=== PATIENT | female | born 1990 | race Caucasian/White ===

== ENCOUNTER 2018-05-28 13:54 | Emergency (ER) | payer OTHER ==
[2018-05-28] MEDS ORDERED: SODIUM CHLORIDE 0.9% 1,000 ML IV ONE (14:19)
--- NOTE | 2018-05-28 14:29 | ED Physician Documentation ---
History of Present Illness - Stated complaint Stated Complaint: DEHYDRATED - Chief complaint Chief Complaint: General - History obtained from History obtained from: Patient - History of Present Illness Timing: Today Pain level max: 0 Pain level now: 0 - Additonal information Additional information: 28 year old female, changed her diet to intermittent fasting 16:8 2 weeks ago. Thinks her daily caloric intake is around 1600 now. States body aches since yesterday and nausea today.Feels lightheaded with standing. Feels dehydrated per pt. No fever. no diarrhe. no possibility of . Review of Systems Ten Systems: 10 systems reviewed and negative Constitutional: denies: Fever, Chills Ears: denies: Ear pain Nose: denies: Rhinorrhea / runny nose, Congestion Throat: denies: Sore throat Cardiac: denies: Chest pain / pressure Respiratory: denies: Cough GI: reports: Nausea. denies: Abdominal Pain, Vomiting, Diarrhea : denies: Dysuria Skin: denies: Rash Musculoskeletal: denies: Neck pain, Back pain Neurologic: denies: Focal weakness, Numbness, Headache PD PAST MEDICAL HISTORY - Past Medical History Past Medical History: No - Past Surgical History Past Surgical History: No - Allergies Allergies/Adverse Reactions: Allergies Allergy/AdvReac Type Severity Reaction Status Date / Time No Known Drug Allergies Allergy Verified 05/28/18 14:14 - Living Situation Living Arrangement: reports: At home - Social History Does the pt smoke?: No Does the pt have substance abuse?: No - Family History Family history: reports: Non contributory PD ED PE NORMAL - Vitals Vital signs reviewed: Yes - General General: Alert and oriented X 3, No acute distress - HEENT HEENT: Other (dry lips and tongue) - Neck Neck: Supple, no meningeal sign - Cardiac Cardiac: RRR - Respiratory Respiratory: No respiratory distress, Clear bilaterally - Abdomen Abdomen: Soft, Non tender, Non distended - Back Back: No CVA TTP, No spinal TTP - Derm Derm: Warm and dry, No rash - Extremities Extremities: No edema - Neuro Neuro: Alert and oriented X 3, No motor deficit, No sensory deficit Results - Vitals Vitals: Vital Signs - 24 hr 05/28/18 05/28/18 05/28/18 14:05 14:53 14:55 Temperature 36.4 C L Heart Rate 80 77 80 Respiratory 18 16 16 Rate Blood Pressure 141/65 H 128/73 120/56 L O2 Saturation 100 99 97 05/28/18 05/28/18 15:00 15:15 Temperature Heart Rate 80 76 Respiratory 16 16 Rate Blood Pressure 120/64 129/60 O2 Saturation Oxygen O2 Source Room air - Labs Labs: Laboratory Tests 05/28/18 05/28/18 05/28/18 14:26 14:26 14:26 WBC 7.5 RBC 4.40 Hgb 13.3 Hct 38.5 MCV 87.4 MCH 30.2 MCHC 34.6 RDW 13.7 Plt Count 191 MPV 7.4 L Neut # (Auto) 6.7 H Lymph # (Auto) 0.4 L Barnes # (Auto) 0.3 Eos # (Auto) 0.0 Baso # (Auto) 0.0 Absolute Nucleated RBC 0.00 Nucleated RBC % 0.0 Sodium 135 Potassium 3.8 Chloride 99 L Carbon Dioxide 28 Anion Gap 8.0 BUN 10 Creatinine 0.7 Estimated GFR (MDRD) 100 Glucose 93 Calcium 9.0 Phosphorus 3.0 Magnesium 1.9 Total Bilirubin 0.5 AST 21 ALT 16 Alkaline Phosphatase 84 Total Creatine Kinase 88 Total Protein 7.6 Albumin 4.1 Globulin 3.5 Albumin/Globulin Ratio 1.2 Urine Color Urine Clarity Urine pH Ur Specific Emily Urine Protein Urine Glucose (UA) Urine Ketones Urine Occult Blood Urine Nitrite Urine Bilirubin Urine Urobilinogen Ur Leukocyte Esterase Ur Microscopic Review Urine Culture Comments Urine HCG, Qual 05/28/18 16:18 WBC RBC Hgb Hct MCV MCH MCHC RDW Plt Count MPV Neut # (Auto) Lymph # (Auto) Barnes # (Auto) Eos # (Auto) Baso # (Auto) Absolute Nucleated RBC Nucleated RBC % Sodium Potassium Chloride Carbon Dioxide Anion Gap BUN Creatinine Estimated GFR (MDRD) Glucose Calcium Phosphorus Magnesium Total Bilirubin AST ALT Alkaline Phosphatase Total Creatine Kinase Total Protein Albumin Globulin Albumin/Globulin Ratio Urine Color YELLOW Urine Clarity CLEAR Urine pH 6.0 Ur Specific Emily 1.015 Urine Protein NEGATIVE Urine Glucose (UA) NEGATIVE Urine Ketones NEGATIVE Urine Occult Blood NEGATIVE Urine Nitrite NEGATIVE Urine Bilirubin NEGATIVE Urine Urobilinogen 0.2 (NORMAL) Ur Leukocyte Esterase NEGATIVE Ur Microscopic Review NOT INDICATED Urine Culture Comments NOT INDICATED Urine HCG, Qual NEGATIVE PD MEDICAL DECISION MAKING - ED course Complexity details: reviewed results, re-evaluated patient, considered differential, d/w patient ED course: 28-year-old female whose symptoms resolved after IV fluids in the emergency department. Tolerating p.o. without difficulty. Feels much better. Will encourage p.o. hydration at home. No acute laboratory abnormalities. Patient is well-appearing, nontoxic. Afebrile. Does not appear to have any significant laboratory abnormalities from her recent dietary changes. Patient counseled regarding signs and symptoms for which I believe and urgent re-evaluation would be necessary. Patient with good understanding of and agreement to plan and is comfortable going home at this time This document was made in part using voice recognition software. While efforts are made to proofread this document, sound alike and grammatical errors may occur. Departure - Departure Disposition: 01 Home, Self Care Clinical Impression: Dehydration Condition: Good Instructions: ED Dehydration Follow-Up: Provider,Other [Primary Care Provider] - As Needed Comments: Return if you worsen. Drink plenty of fluids at home. Your tests are normal today. Discharge Date/Time: 05/28/18 17:32
[2018-05-28 14:37] LABS: BASOPHILS % (AUTO) 0.1 %; EOSINOPHILS % (AUTO) 0.3 %; HGB - HEMOGLOBIN 13.3 g/dL (12.0-16.0); LYMPHOCYTES # (AUTO) 0.4 10^3/uL (1.5-3.5); LYMPHOCYTES % (AUTO) 5.8 %; MEAN CORPUSCULAR HEMOGLOBIN 30.2 pg (27.0-31.0); MEAN CORPUSCULAR HGB CONC 34.6 g/dL (32.0-36.0); MEAN CORPUSCULAR VOLUME 87.4 fL (81.0-99.0); MEAN PLATELET VOLUME 7.4 fL (7.9-10.8); MONOCYTES # (AUTO) 0.3 10^3/uL (0.0-1.0); MONOCYTES % (AUTO) 4.3 %; NEUTROPHILS # (AUTO) 6.7 10^3/uL (1.5-6.6); NEUTROPHILS % (AUTO) 89.5 %; PLT - PLATELET COUNT 191 10^3/uL (130-450); RED CELL DISTRIBUTION WIDTH 13.7 % (12.0-15.0); WHITE BLOOD COUNT 7.5 x10^3/uL (4.8-10.8)
[2018-05-28 14:50] LABS: ALBUMIN 4.1 g/dL (3.2-5.5); ALBUMIN/GLOBULIN RATIO 1.2 (1.0-2.2); BILIRUBIN,TOTAL 0.5 mg/dL (0.2-1.0); CREATININE 0.7 mg/dL (0.4-1.0); TOTAL PROTEIN 7.6 g/dL (6.7-8.2)
[2018-05-28 14:56] LABS: MAGNESIUM 1.9 mg/dL (1.7-2.8)
[2018-05-28 15:35] VITALS: BP 129/60
[2018-05-28 16:39] LABS: BILIRUBIN,URINE NEGATIVE (NEGATIVE); GLUCOSE, URINE (UA) NEGATIVE (NEGATIVE); KETONES,URINE (UA) NEGATIVE (NEGATIVE); LEUKOCYTE ESTERASE, URINE NEGATIVE (NEGATIVE); NITRITE,URINE NEGATIVE (NEGATIVE); OCCULT BLOOD,URINE NEGATIVE (NEGATIVE); PROTEIN,URINE NEGATIVE (NEGATIVE); UROBILINOGEN,URINE 0.2 (NORMAL) E.U./dL (NORMAL)
[2018-05-28 16:48] LABS: CLARITY,URINE CLEAR (CLEAR); HCG UR QUAL NEGATIVE
== END 2018-05-28 17:32 | disposition home or self-care (01) ==
LOC: ED 13:54
DX: E86.0 Dehydration (principal)
CPT/HCPCS: 36415; 80053; 81001; 81003; 81025; 82550; 83735; 84100; 85025; 87086; 96360; 99283

== ENCOUNTER 2018-12-30 10:28 | Outpatient (CLI) | payer OTHER | END 2018-12-30 10:29 | disposition home or self-care (01) | LOC: LAB 10:28 | PROVIDERS: ATTEND Nurse Practitioner Obstetrics & Gynecology | DX: Z36.8A Encounter for antenatal screening for other genetic defects (principal) | CPT/HCPCS: 36415; 81511; 81599 ==

== ENCOUNTER 2019-01-15 08:45 | Outpatient (CLI) | payer OTHER ==
--- NOTE | 2019-01-15 17:11 | Ultrasound Report ---
Reason: ENCOUNTER FOR OTHER SPECIFIED SCREENING Procedure Date: 01/15/2019 Accession Number: [id number] / [id number] Procedure: US - OB Detailed Eval CPT Code: FULL RESULT: EXAM: COMPLETE OBSTETRICAL ULTRASOUND EXAM DATE: 01/15/2019 11:18 AM. CLINICAL HISTORY: anatomic survey. LMP 08/15/2018 COMPARISON: None. TECHNIQUE: Real-time sonographic evaluation of the fetus performed by the order entry representative. Multiple sales representative business courses static images were saved for review. DATING: EGA 21 weeks 6 days with KRISTY 05/22/2019 based on LMP. EGA 19 weeks 2 days with KRISTY 06/09/2019 based on physician report. EGA 18 weeks 5 days with KRISTY 06/13/2019 based on the current ultrasound. GENERAL EVALUATION [place] . Cardiac activity: 149 bpm. movement: Present Presentation: Breech Placenta: Posterior position. No evidence for previa. Umbilical cord: 3 vessel cord. Central placental cord origin. Amniotic fluid: Subjectively normal. MVP 2.8 cm. BIOMETRY Bi-Parietal Diameter (BPD): 4 cm, 18 weeks 0 days Head Circumference (HC): 15.7 cm, 18 weeks 4 days Abdominal Circumference (AC): 14 cm, 19 weeks 3 days Femur Length (FL): 2.8 cm, 18 weeks 4 days Estimated Weight: 264 g, 25th percentile. ANATOMY The intracranial structures, profile, face/nose/lips, spine, 4 chamber heart and outflow tracts, stomach, abdominal wall and cord insertion, diaphragm, kidneys, bladder, and extremities were visualized and demonstrate no abnormality. MATERNAL STRUCTURES Uterus: Unremarkable. Cervix: Long and closed. Transabdominal length 5.5 cm. Right ovary/adnexa: Unremarkable. Left ovary/adnexa: Unremarkable. Free fluid: None. IMPRESSION: 1. Mcgowan intrauterine with gestational age 19 weeks 2 days based on physician stated. 2. Estimated weight is within expected limits for assigned dating. 3. Normal anatomic survey. No anatomic abnormalities are detected at this time. RADIA
== END 2019-01-15 08:46 | disposition home or self-care (01) ==
LOC: DI 08:45
PROVIDERS: ATTEND Nurse Practitioner Obstetrics & Gynecology
DX: Z36.89 Encounter for other specified antenatal screening (principal)
CPT/HCPCS: 76811

== ENCOUNTER 2019-01-30 11:20 | Outpatient (CLI) | payer OTHER ==
[2019-01-30 11:30] LABS: HGB - HEMOGLOBIN 12.3 g/dL (12.0-16.0); MEAN CORPUSCULAR HGB CONC 33.6 g/dL (32.0-36.0); MEAN CORPUSCULAR VOLUME 89.3 fL (81.0-99.0); MEAN PLATELET VOLUME 9.4 fL (7.9-10.8); RED BLOOD COUNT 4.1 10^6/uL (4.20-5.40); RED CELL DISTRIBUTION WIDTH 12.9 % (12.0-15.0); WHITE BLOOD COUNT 11.2 x10^3/uL (4.8-10.8)
[2019-01-30 11:49] LABS: % IRON SATURATION 12 % (20-50); IRON 44 ug/dL (28-170); TOTAL IRON BINDING CAPACITY 378 ug/dL (250-450); TRANSFERRIN 270 mg/dL (192-382)
[2019-01-30 12:06] LABS: FERRITIN 83.4 ng/mL (11.0-306.8)
== END 2019-01-30 11:21 | disposition home or self-care (01) ==
LOC: LAB 11:20
PROVIDERS: ATTEND Obstetrics & Gynecology
DX: Z34.90 Encounter for supervision of normal pregnancy, unspecified, unspecified trimester (principal); R53.83 Other fatigue
CPT/HCPCS: 36415; 82728; 83540; 84443; 84466; 85027

== ENCOUNTER 2019-03-24 13:58 | Outpatient (CLI) | payer OTHER ==
[2019-03-24 15:30] LABS: HGB - HEMOGLOBIN 12.4 g/dL (12.0-16.0); MEAN CORPUSCULAR HEMOGLOBIN 29.2 pg (27.0-31.0); MEAN CORPUSCULAR HGB CONC 32.4 g/dL (32.0-36.0); MEAN CORPUSCULAR VOLUME 90.1 fL (81.0-99.0); MEAN PLATELET VOLUME 10.1 fL (7.9-10.8); RED BLOOD COUNT 4.25 10^6/uL (4.20-5.40); RED CELL DISTRIBUTION WIDTH 13.5 % (12.0-15.0)
== END 2019-03-24 13:59 | disposition home or self-care (01) ==
LOC: LAB 13:58
PROVIDERS: ATTEND Obstetrics & Gynecology
DX: Z34.90 Encounter for supervision of normal pregnancy, unspecified, unspecified trimester (principal)
CPT/HCPCS: 36415; 82950; 85027

== ENCOUNTER 2019-05-05 08:00 | Outpatient (CLI) | payer OTHER ==
[2019-05-05 19:32] LABS: TRICHOMONAS VAGINALIS DNA NEGATIVE (NEGATIVE)
== END 2019-05-05 23:59 | disposition home or self-care (01) ==
LOC: LAB.R 08:00
PROVIDERS: ATTEND Obstetrics & Gynecology
DX: Z36.89 Encounter for other specified antenatal screening (principal)
CPT/HCPCS: 87491; 87591; 87661; 87797

== ENCOUNTER 2019-06-08 05:06 | Inpatient (IN) | payer OTHER ==
[2019-06-08] MEDS ORDERED: fentaNYL 100 MCG/2 ML VIAL IVP PRN (06:23)
[2019-06-08] MEDS ORDERED: ONDANSETRON 4 MG/2 ML VIAL IVP PRN (06:23)
[2019-06-08] MEDS ORDERED: SODIUM CHLORIDE FLUSH 0.9% 10 ML SYRINGE IVP PRN ×2 (06:23→17:33)
[2019-06-08 07:00] LABS: BASOPHILS % (AUTO) 0.3 %; EOSINOPHILS # (AUTO) 0.1 10^3/uL (0.0-0.7); EOSINOPHILS % (AUTO) 0.7 %; HGB - HEMOGLOBIN 13.3 g/dL (12.0-16.0); LYMPHOCYTES # (AUTO) 1.2 10^3/uL (1.5-3.5); LYMPHOCYTES % (AUTO) 10.2 %; MEAN CORPUSCULAR HGB CONC 33.5 g/dL (32.0-36.0); MEAN CORPUSCULAR VOLUME 86.7 fL (81.0-99.0); MEAN PLATELET VOLUME 10.7 fL (7.9-10.8); MONOCYTES # (AUTO) 0.7 10^3/uL (0.0-1.0); MONOCYTES % (AUTO) 6.1 %; NEUTROPHILS # (AUTO) 9.9 10^3/uL (1.5-6.6); NEUTROPHILS % (AUTO) 82.1 %; PLT - PLATELET COUNT 201 10^3/uL (130-450); RED BLOOD COUNT 4.58 10^6/uL (4.20-5.40); RED CELL DISTRIBUTION WIDTH 14.5 % (12.0-15.0); WHITE BLOOD COUNT 12.1 x10^3/uL (4.8-10.8)
[2019-06-08] MEDS ORDERED: ACETAMINOPHEN 325 MG TABLET PO SCH (07:00)
[2019-06-08] MEDS ORDERED: LACTATED RINGERS 1,000 ML IV SCH ×2 (07:00→18:00)
[2019-06-08 10:44] LABS: ALBUMIN/GLOBULIN RATIO 0.8 (1.0-2.2); BILIRUBIN,TOTAL 0.3 mg/dL (0.2-1.0); CALCIUM 9.1 mg/dL (8.5-10.3); CREATININE 0.6 mg/dL (0.4-1.0); TOTAL PROTEIN 6.6 g/dL (6.7-8.2)
[2019-06-08 12:40] LABS: PROTEIN/CREATININE RATIO,URINE 0.1 (<=0.2)
[2019-06-08] MEDS: OXYTOCIN/DEXTROSE 5 % 30 UNIT/500 ML BAG IV SCH ×2 (13:23→18:08)
--- NOTE | 2019-06-08 14:56 | PROVIDER PROGRESS NOTE ---
Labor Progress Note - Uterine Monitoring Uterine Monitoring Mode: positive: External toco Contraction Frequency (min/apart): difficulty picking up externaly. IUPC placed. Contraction Intensity: positive: Moderate (now 5 min apart) Uterine Resting Tone: positive: Soft - Monitoring Monitor Mode: positive: External ultrasound Heart Rate Baseline: 130 Heart Rate Variability: positive: Absent; amplitude undetectable Accelerations: positive: Present, 15x15 Decelerations: positive: Early Strip Review: positive: Category II - Vaginal Exam Dilation (in cm): 4 Effacement (%): 100% Station: 0 Cervical Position: Midposition - Labor Progress Note Labor Progress Note/Additional Text: because external toco was not able to pickup contrctions a IUPC was placed. The external monitor had difficulty picking up her head rate. a FSE was placed and the maternal rate was picked up. FECG removed and external heart monitor resumed. During this time O2 was added at 10 l/m. bolis of 300 ml given adn pt placed in knee chest. pit was stopped. Now External heart rate 130's, Contractions q 5 min. restart pitocin.
--- NOTE | 2019-06-08 15:17 | HISTORY & PHYSICAL EXAMINATION ---
DATE OF SERVICE: 06/08/2019 Physician: Beto Cook MD IDENTIFICATION: The patient is a 29-year-old G1, P0 female. Her EDC is 06/09/2019. This makes her 39.6 weeks. CHIEF COMPLAINT: Labor. HISTORY OF PRESENT ILLNESS: The patient developed contractions at roughly 2:30 in the morning on the . She presented to Labor and Delivery at roughly 4:30, at which time she was fingertip, 100%, - 1. She was allowed to ambulate and during this time, she spontaneously ruptured at roughly 6:10. Me conium was noted at that particular time. She was admitted for labor. Her OB care started at [facility]. She transferred to our group at 17 weeks EGA. Her course has been unremarkable. Her labs : She is noted to be A positive. She is rubella immune. Her RPR, hepatitis B, chlamydia, GC, as we ll as HIV were all negative. Her 50 gram Glucola was 95. She was noted to have a normal blood press ure throughout. She had a group B strep culture, which was also noted to be negative. PAST MEDICAL HISTORY: The patient denies any hypertensive, diabetic, cardiac, or pulmonary disease. PAST SURGICAL HISTORY: Negative. HISTORY: The patient is to an active-[employer] personnel. FAMILY HISTORY: Positive for breast cancer, diabetes, stroke, as well as heart attack. PHYSICAL EXAMINATION: GENERAL: The patient is a well-developed, well-nourished white female. She is obese. VITAL SIGNS: Blood pressure on admission was 153/90, heart rate was 86, respirations were 18, 100% o n room air. HEENT: Pupils are equal and round. Extraocular muscles are intact. CARDIOVASCULAR: Regular rate and rhythm without murmurs. LUNGS: Lung garnica are clear without rales or wheezes. BACK: No spinal or CVA tenderness. ABDOMEN: Gravid. PELVIC: Cervical examination by myself shows her to be 2-3 cm. She is 100% mid position, 0 station, vertex. IMPRESSION: 1. A 29-year-old primigravida, active labor. 2. Spontaneous rupture of membranes, light meconium. PLAN: We will obtain labs. In view of the fact that she has been ruptured for 5 hours, we will star t nipple stimulation. If this is unsuccessful, the option of switching her over to Pitocin will be performed. She is requesting minimal intervention at this time. Because of her initial elevated blo od pressure, we will obtain PIH labs, and he will also obtain a protein-creatinine ratio. TD: 06/08/2019 10:31
[2019-06-08] MEDS ORDERED: ROPIVACAINE 0.2% 200 MG/100 ML BAG EP ONE (15:26)
[2019-06-08] MEDS ORDERED: TERBUTALINE 1 MG/ML VIAL SUBQ ONE ×2 (15:32→15:35)
[2019-06-08] MEDS ORDERED: LACTATED RINGERS 1,000 ML IV ONE ×2 (16:20→17:17)
[2019-06-08] MEDS ORDERED: BUPIVACAINE 0.25% PF 30 ML VIAL ONE (16:44)
[2019-06-08] MEDS: HYDROmorphone 0.5 MG/0.5 ML SYRINGE ONE ×2 (17:17→17:23)
--- NOTE | 2019-06-08 17:24 | ANESTHESIA ---
Pre-Anesthesia VS, & Labs - Diagnosis bradycardia intolerance of labor - Procedure Emergency Vital Signs: Temp Pulse Resp BP Pulse Ox 68 18 153/90 H 06/08/19 05:45 06/08/19 05:45 06/08/19 05:45 Height 5 ft 10 in Weight (kg) 118.841 kg Body Mass Index 32.3 - NPO Other (ice chips) - Is Patient ?: Yes - Lab Results Current Lab Results: Laboratory Tests 06/08/19 07:30: Sodium 137, Potassium 4.2, Chloride 104, Carbon Dioxide 23, Anion Gap 10.0, BUN 12, Creatinine 0.6, Estimated GFR (MDRD) 119, Glucose 107 H, Uric Acid 5.0, Calcium 9.1, Total Bilirubin 0.3, AST 19, ALT 16, Alkaline Phosphatase 162 H, Total Protein 6.6 L, Albumin 3.0 L, Globulin 3.6, Albumin/Globulin Ratio 0.8 L 06/08/19 06:45: WBC 12.1 H, RBC 4.58, Hgb 13.3, Hct 39.7, MCV 86.7, MCH 29.0, MCHC 33.5, RDW 14.5, Plt Count 201, MPV 10.7, Neut # (Auto) 9.9 H, Lymph # (Auto) 1.2 L, Dougherty # (Auto) 0.7, Eos # (Auto) 0.1, Baso # (Auto) 0.0, Absolute Nucleated RBC 0.00, Nucleated RBC % 0.0 Lab results reviewed: Yes Fish Bones: 06/08/19 06:45 06/08/19 07:30 Home Medications and Allergies Active Medications Acetaminophen (Tylenol) 650 mg PO Q6H CARLOS Fentanyl (Fentanyl) 50 mcg IVP Q1H PRN PRN Reason: PAIN Lactated Ringer's (Lr) 1,000 mls @ 150 mls/hr IV .Q6H40M [facility] Last Admin: 06/08/19 13:10 Dose: 150 mls/hr OXYTOCIN/DEXTROSE 5 % (Pitocin/Dextrose 5%) 30 unit in 500 mls @ 1 mls/hr IV TITR CARLOS; Protocol Last Admin: 06/08/19 13:23 Dose: 1 milliunit/min, 1 mls/hr Ondansetron HCl (Zofran Inj) 4 mg IVP Q4H PRN PRN Reason: Nausea / Vomiting Sodium Chloride (Normal Saline Flush 0.9%) 10 ml IVP PRN PRN PRN Reason: NEEDED PER PROVIDER ORDERS Allergies/Adverse Reactions: Allergies Allergy/AdvReac Type Severity Reaction Status Date / Time No Known Drug Allergies Allergy Verified 05/28/18 14:14 Anes History & Medical History - Anesthetic History Anesthesia Complications: reports: No previous complications Family history of Anesthesia Complications: Denies Family history of Malignant Hyperthermia: Denies - Medical History Cardiovascular: reports: None Pulmonary: reports: None Gastrointestinal: reports: None Urinary: reports: None Neuro: reports: None Musculoskeletal: reports: None Endocrine/Autoimmune: reports: None Blood Disorders: reports: None Skin: reports: None Smoking Status: Never smoker Psychosocial: reports: No issues indicated Exam General: Alert, Severe distress Dental: WNL Mouth Opening: Greater than 4 Fingerbreadths Neck Mobility: Normal Mallampati classification: I Thyromental Distance: greater than 6 cm Respiratory: Lungs clear Cardiovascular: Regular rate Plan Anesthesia Type: General Consent for Procedure(s) Verified and Reviewed: Yes Code Status: Attempt Resuscitation ASA classification: 2-Mild systemic disease Is this case an emergency?: Yes (Obtained verbal consent d/t emergent situation)
[2019-06-08] MEDS ORDERED: HYDROmorphone PCA 20MG/100ML IV PRN (17:29)
--- NOTE | 2019-06-08 17:41 | OPERATIVE REPORT ---
Operative Report - General Admit Date: 06/08/19 Procedure Date: 06/08/19 Planned Procedure: STAT Primary LTC/S Pre-Op Diagnosis: intolerance of labor Procedure Performed: STAT Primary LTC/S Post Op Diagnosis: Occult Prolapsed cord and abdominal cord - Procedure Note Primary Surgeon: Beto Cook MD Secondary Surgeon: Dr Verenice Shah Anesthesia Provider: Salvatore Limon CRNA Anesthesia Technique: General ET tube Pathology: Placenta IV Fluids (mL): 1,000 Estimated Blood Loss (mL): 800 Urine Output (mL): 125 Findings: Live Male Apgars 7/10, pH 7.3
--- NOTE | 2019-06-08 20:13 | PREOP HISTORY & PHYSICAL ---
DATE OF SERVICE: 06/08/2019 Physician: Beto Cook MD PREOPERATIVE DIAGNOSIS: intolerance of labor. POSTOPERATIVE DIAGNOSIS: Occult prolapsed cord. PROCEDURE: STAT primary low transverse section. SURGEON: Beto Cook MD COIL WINDER HAND: Verenice Shah MD ANESTHESIA: Salvatore Limon CRNA ANESTHETIC: General via endotracheal tube. IV FLUIDS: 1000 mL. ESTIMATED BLOOD LOSS: 800 mL. URINE OUTPUT: 125 mL FINDINGS: Upon entering the abdominal cavity, there was thick meconium noted. The was noted to be head down in the pelvis. The cord was down over the head, not presenting through the cervix, but between the head and the lower uterine segment. There was also a body cord on the . Apgars were 7 and 9. PROCEDURE: A STAT was called at roughly 1535. She was taken down to the operating theater in an expeditious fashion. At this point, she was prepped, a Solis catheter was placed, and then a rapid sequence induction was accomplished. At this point, a Pfannenstiel incision was carried down through the subcutaneous tissue to the fascia. The fascia was incised transversely with Sheffield scissors, and then the rectus was split along the midline vertically. The peritoneum was entered high. Care was taken to avoid any injury to bowel or bladder. At this point, a bladder flap was developed using both blunt and sharp dissection, and a low transverse skin incision was accomplished using a #10 blade, bandage scissors and finger-spread technique. Upon entering the uterine cavity, the cord was immediately encountered and was noted to lie between the head and the lower uterine segment and across the lower portion of the head. The head was lifted out of the pelvis. The infant was delivered. The cord was unwrapped from around the and then doubly clamped and divided. The infant was handed to the nursery team that was standing by with network/telecom engineer. At this point, a segment of cord was clamped and set aside for cord gases. Cord blood samples were obtained and following this the placenta was manually delivered. The uterus was exteriorized, wrapped in a moist lap and cleansed in the internal portion with a dry lap. There was evidence of some extra membranes that were removed with ring forceps. At this point, the lower uterine incision was grasped with ring forceps and then closed with a running locking suture of 0 Vicryl. At this point, the incision was imbricated with 0 Vicryl. There was evidence of good contractions of the uterus and bleeding was noted to be minimal. At this point, a rolled lap was placed over the lower uterine segment. The uterus was exteriorized and the cul-de-sac was suctioned clear of clot, and estimated blood loss was made at that time. The pelvis was then irrigated with normal saline. The uterus was delivered back in the abdominal cavity. Gutters were likewise irrigated. At this point, the moist lap was removed. There was no evidence of any bleeding from the incision. The peritoneum was then closed utilizing 2-0 Vicryl. The rectus was inspected. Electrocautery was used for hemostasis on the rectus. No further bleeding was noted, so the fascia was closed utilizing looped PDS. Subcutaneous tissue was inspected. There was some bleeding on the left side of the incision, which was treated with cautery. This was then noted to be free of any bleeding, and Jhon's fascia was closed utilizing 2-0 Vicryl. The incision was then closed with 4-0 Monocryl subcuticular. A wound VAC was placed after application of benzoin. This was unable to obtain any kind of a seal, so at this point the wound VAC was removed and a regular dressing was applied. At this point, the procedure was terminated. The patient tolerated the procedure well. Because there was no sponge and instrument count performed on the way in, an x-ray was performed afterwards and showed the abdomen to be free of any sponges or instruments. The patient was taken to recovery in stable condition. Dr. Verenice Shah was critical to the performing of this procedure. She assisted in retraction and hemostasis, as well as dissection. TD: 06/08/2019 18:00 MTDLachelle
[2019-06-08] MEDS: KETOROLAC 30 MG/ML VIAL IVP SCH (23:30)
[2019-06-09] MEDS: KETOROLAC 30 MG/ML VIAL IVP SCH ×3 (04:58→19:47)
[2019-06-09 05:33] LABS: BASOPHILS % (AUTO) 0.1 %; HGB - HEMOGLOBIN 9.4 g/dL (12.0-16.0); LYMPHOCYTES % (AUTO) 6.7 %; MEAN CORPUSCULAR HEMOGLOBIN 29.2 pg (27.0-31.0); MEAN CORPUSCULAR HGB CONC 33.1 g/dL (32.0-36.0); MEAN CORPUSCULAR VOLUME 88.2 fL (81.0-99.0); MONOCYTES # (AUTO) 0.9 10^3/uL (0.0-1.0); MONOCYTES % (AUTO) 6.3 %; NEUTROPHILS # (AUTO) 12.7 10^3/uL (1.5-6.6); NEUTROPHILS % (AUTO) 86.2 %; PLT - PLATELET COUNT 169 10^3/uL (130-450); RED BLOOD COUNT 3.22 10^6/uL (4.20-5.40); RED CELL DISTRIBUTION WIDTH 14.6 % (12.0-15.0); WHITE BLOOD COUNT 14.8 x10^3/uL (4.8-10.8)
--- NOTE | 2019-06-09 05:58 | XRAY Report ---
Reason: EMERGENCY C- CHECKING FOR SPONGES AND INSTRUMENTS BEFORE CLOSING Procedure Date: 06/08/2019 Accession Number: [id number] / [id number] Procedure: XR - Pelvis 1 View CPT Code: Final Report FULL RESULT: EXAM: PELVIS RADIOGRAPHY EXAM DATE: 06/08/2019 04:59 PM. CLINICAL HISTORY: EMERGENCY C- CHECKING FOR SPONGES AND INSTRUMENTS BEFORE CLOSING. COMPARISON: None. TECHNIQUE: 1 view. FINDINGS: Bones: Normal. No fracture or bone lesion. Joints: The visualized hip, pubis symphysis, and sacroiliac joints are preserved. No subluxation. Soft Tissues: Normal. No soft tissue swelling. IMPRESSION: No unexpected radiopaque foreign body. RADIA
[2019-06-09] MEDS ORDERED: LACTATED RINGERS 1,000 ML IV ONE (06:24)
--- NOTE | 2019-06-09 08:28 | PROVIDER PROGRESS NOTE ---
Subjective - General Admit Date: 06/08/19 Procedure Date: 06/08/19 Post Op Days: 1 Procedure Performed: STAT PLTC/S - Review of Systems Wound/Incisions: positive: Dressing dry and intact General: positive: No symptoms (minimal pain brest feeding) Pulmonary: positive: No symptoms Cardiovascular: positive: No symptoms Gastrointestinal: positive: No symptoms, Flatus Objective - Patient Data Reviewed Vital Signs: Yes Vital Signs: Vital Signs x48h Temp Pulse Resp BP Pulse Ox 06/09/19 05:00 36.7 C 97 16 116/60 97 06/09/19 03:15 18 06/09/19 02:15 16 06/09/19 02:00 16 06/09/19 01:00 97 16 122/66 97 Weight: Weight 06/07/19 06/08/19 06/09/19 23:59 23:59 23:59 Weight (kg) 118.841 kg Intake & Output: Intake and Output Totals x24h 06/07/19 06/08/19 06/09/19 23:59 23:59 23:59 Intake Total 4.75 Output Total 795 320 Balance -790.25 -320 - Lab Results Lab Results: 06/09/19 05:19 06/08/19 07:30 Other Lab Results: Lab Results x24hrs 06/09/19 06/08/19 06/08/19 Range/Units 05:19 11:50 07:30 WBC 14.8 H (4.8-10.8) x10^3/uL RBC 3.22 L (4.20-5.40) 10^6/uL Hgb 9.4 L (12.0-16.0) g/dL Hct 28.4 L (37.0-47.0) % MCV 88.2 (81.0-99.0) fL MCH 29.2 (27.0-31.0) pg MCHC 33.1 (32.0-36.0) g/dL RDW 14.6 (12.0-15.0) % Plt Count 169 (130-450) 10^3/uL MPV 10.0 (7.9-10.8) fL Neut # (Auto) 12.7 H (1.5-6.6) 10^3/uL Lymph # (Auto) 1.0 L (1.5-3.5) 10^3/uL [place] # (Auto) 0.9 (0.0-1.0) 10^3/uL Eos # (Auto) 0.0 (0.0-0.7) 10^3/uL Baso # (Auto) 0.0 (0.0-0.1) 10^3/uL Absolute Nucleated RBC 0.00 x10^3/uL Nucleated RBC % 0.0 /100WBC Sodium 137 (135-145) mmol/L Potassium 4.2 (3.5-5.0) mmol/L Chloride 104 (101-111) mmol/L Carbon Dioxide 23 (21-32) mmol/L Anion Gap 10.0 (6-13) BUN 12 (6-20) mg/dL Creatinine 0.6 (0.4-1.0) mg/dL Estimated GFR (MDRD) 119 (>89) Glucose 107 H (70-100) mg/dL Uric Acid 5.0 (2.6-7.2) mg/dL Calcium 9.1 (8.5-10.3) mg/dL Total Bilirubin 0.3 (0.2-1.0) mg/dL AST 19 (10-42) IU/L ALT 16 (10-60) IU/L Alkaline Phosphatase 162 H (42-121) IU/L Total Protein 6.6 L (6.7-8.2) g/dL Albumin 3.0 L (3.2-5.5) g/dL Globulin 3.6 (2.1-4.2) g/dL Albumin/Globulin Ratio 0.8 L (1.0-2.2) Urine Creatinine 230.0 mg/dL Ur Total Protein Timed 31 mg/dL Protein/Creatinin Ratio 0.1 (<=0.2) - Imaging Results Radiology Imaging: positive: Prelim report reviewed (no retained forign bodies) - Current Medications Current Medications: Current Medications Generic Name Dose Route Start Last Admin Trade Name Freq PRN Reason Stop Dose Admin Hydromorphone HCl 0 mg 06/08/19 17:29 06/08/19 19:15 Dilaudid Clinical Assistant Professor 20mg/100ml IV 20 mg PRN PRN Administration PAIN Protocol Lactated Ringer's 1,000 mls @ 150 mls/hr 06/08/19 07:00 06/08/19 13:10 Lr IV 150 mls/hr .Q6H40M CARLOS Administration OXYTOCIN/DEXTROSE 5 % 30 unit in 500 mls @ 1 mls/hr 06/08/19 11:00 06/08/19 18:08 Pitocin/Dextrose 5% IV 50 milliunit/min TITR CARLOS 50 mls/hr Administration Protocol 1 MILLIUNIT/MIN Lactated Ringer's 1,000 mls @ 100 mls/hr 06/08/19 18:00 06/08/19 18:16 Lr IV 100 mls/hr .Q10H CARLOS Administration Ketorolac Tromethamine 30 mg 06/08/19 18:00 06/09/19 04:58 Toradol Inj (30mg) IVP 06/09/19 12:01 30 mg Q6H CARLOS Administration - Physical Exam Wound/Incisions: positive: Dressing dry and intact General Appearance: positive: No acute distress, Alert Respiratory: positive: Chest non-tender, No respiratory distress, Breath sounds nml Cardiovascular: positive: Regular rate & rhythm, No murmur, No gallop Abdomen: positive: Nml bowel sounds, Tenderness (minimal). negative: Non-tender Back: negative: CVA tenderness (R), CVA tenderness (L) Extremities: negative: Calf tenderness, Krzysztof's sign/cords Impression/Plan - Problem List Problem List: POD # 1 excellent progress gonzales out, ambulate, change to oral pain meds
[2019-06-09] MEDS: ACETAMINOPHEN 500 MG TABLET PO SCH ×3 (10:04→19:48)
[2019-06-09] MEDS: DOCUSATE SODIUM 100 MG CAPSULE PO SCH ×3 (10:04→22:45)
[2019-06-09] MEDS: SIMETHICONE CHEW 80 MG TABLET PO SCH ×3 (10:05→22:45)
[2019-06-09] MEDS: oxyCODONE 5 MG TABLET PO PRN ×3 (10:06→18:32)
[2019-06-09] MEDS: SODIUM CHLORIDE FLUSH 0.9% 10 ML SYRINGE IVP SCH ×3 (14:39→19:48)
[2019-06-09] MEDS ORDERED: diphenhydrAMINE 25 MG CAPSULE PO PRN (22:21)
[2019-06-09] MEDS ORDERED: HYDROmorphone 2 MG TABLET PO PRN (22:22)
[2019-06-09] MEDS: IBUPROFEN 800 MG TABLET PO SCH (22:45)
[2019-06-10] MEDS: SIMETHICONE CHEW 80 MG TABLET PO SCH (03:09)
[2019-06-10] MEDS: ACETAMINOPHEN 500 MG TABLET PO SCH (03:09)
[2019-06-10] MEDS: IBUPROFEN 800 MG TABLET PO SCH (06:39)
[2019-06-10] MEDS ORDERED: ONDANSETRON 4 MG/2 ML VIAL IVP ONE (08:18)
[2019-06-10] MEDS ORDERED: fentaNYL 250 MCG/5 ML VIAL IVP ONE (08:18)
[2019-06-10] MEDS ORDERED: LIDOCAINE-MPF 2% 5 ML VIAL IM ONE (08:18)
[2019-06-10 11:31] VITALS: BP 124/62
--- NOTE | 2019-06-10 14:34 | Labor Flowsheet ---
Labor Flowsheet Datetime Report Generated by CPN: 06/10/2019 14:34 Datetime: 06/08/2019 16:38 Membranes Ruptured Date/Time: 06/08/2019 06:10 Datetime: 06/08/2019 15:35 Frequency (min): 1.5-6 Quality: Moderate Duration (sec): 50-120 Pattern: Normal: <= 5 Contractions in 10 Minutes Resting Tone (Palpate): Relaxed FHR Baseline Rate : 130 FHR Baseline Changes: No Baseline Change Variability: Moderate 6-25 bpm Decelerations: Prolonged Actions for Decelerations: Side to Side; Hands and Knees (Annotations: anesthesia and Dr. Cook at bedside and decision for category I called) Tocolytics: Terbutaline 0.25mg Subcutaneous Datetime: 06/08/2019 15:33 Patient Care Comments: unplugged to roll back to OR with Dr Cook, Lena Brito and Catalina Russ. Shivani cho RN notified to coordinate Datetime: 06/08/2019 15:30 Provider Reviewed Strip: Yes COMMUNICATION Communication: Provider at Bedside (Annotations: Dr. Cook called Category I cesrean section ) Datetime: 06/08/2019 15:28 Pulse: 94 SpO2 (%): 100 Patient Position/Activity: Left Lateral LaborFlag: Labor Datetime: 06/08/2019 15:27 ANESTHESIA Anesthesia Plans: Epidural Anesthesia Comments: Jase Limon in room to consent patient for epidural Datetime: 06/08/2019 15:22 Monitor Interventions for FHR: FSE Applied Effacement (%): 4 Exam by: Dr. Cook Vaginal Exam Comments: FSC placed Datetime: 06/08/2019 15:15 UTERINE ACTIVITY Monitor Mode: Internal ASSESSMENT A Monitor Mode: External US Category: Category I Datetime: 06/08/2019 15:12 Comments: EFM with maternal HR Datetime: 06/08/2019 14:59 Accelerations: 15X15 Datetime: 06/08/2019 14:35 Procedures: Sterile Vag Exam Datetime: 06/08/2019 14:32 Monitor Interventions for UA: IUPC Inserted Datetime: 06/08/2019 14:26 Communication Comments: FSC tracing maternal, discontinued and switched to external Datetime: 06/08/2019 14:18 MEDICATIONS Pitocin (milliunits): Discontinued PATIENT CARE IV/Blood Work: IV Bolus Started Datetime: 06/08/2019 14:16 VAGINAL EXAM Dilatation (cm): 4.0 Vaginal Bleeding: Normal Show Datetime: 06/08/2019 13:55 I/O Interventions: Up to BR Datetime: 06/08/2019 13:31 Respirations: 18 Temperature (C): 36.9 Temperature Route: Oral Datetime: 06/08/2019 13:30 VITAL SIGNS NBP Sys/Valerie/Mean (mmHg): 145 : 82 : 95 Datetime: 06/08/2019 13:11 Station: -1 Datetime: 06/08/2019 12:42 Pain Presence: Intermittent Pain Type: Contraction Pain Location: Abdomen Pain Coping: Breathing Through Contractions Comfort Measures: Breathing/Relaxation; Coaching Datetime: 06/08/2019 12:30 Oxygen Method: Room Air Datetime: 06/08/2019 11:34 Hygiene: Elaine Care; Gown Changed; Linens Changed Datetime: 06/08/2019 08:03 PAIN Pain Scale: 7
--- NOTE | 2019-06-11 10:49 | PROCEDURE REPORT ---
DATE OF SERVICE: 06/08/2019 Physician: Beto Cook MD PREOPERATIVE DIAGNOSIS: intolerance of labor. POSTOPERATIVE DIAGNOSIS: Occult prolapsed cord. PROCEDURE: STAT primary low transverse section. SURGEON: Beto Cook MD COMMUTATOR UNDERCUTTER: Verenice Shah MD ANESTHESIA: Salvatore Limon CRNA ANESTHETIC: General via endotracheal tube. IV FLUIDS: 1000 mL. ESTIMATED BLOOD LOSS: 800 mL. URINE OUTPUT: 125 mL FINDINGS: Upon entering the abdominal cavity, there was thick meconium noted. The was noted to be head down in the pelvis. The cord was down over the head, not presenting through the cervix, but between the head and the lower uterine segment. There was also a body cord on the . Apgars were 7 and 9. PROCEDURE: A STAT was called at roughly 1535. She was taken down to the operating theater in an expeditious fashion. At this point, she was prepped, a Solis catheter was placed, and then a rapid sequence induction was accomplished. A Pfannenstiel incision was carried down through the subcutaneous tissue to the fascia. The fascia was incised transversely with Sheffield scissors, and then the rectus was split along the midline vertically. The peritoneum was entered high. Care was taken to avoid any injury to bowel or bladder. At this point, a bladder flap was developed using both blunt and sharp dissection, and a low transverse skin incision was accomplished using a #10 blade, bandage scissors and finger-spread technique. Upon entering the uterine cavity, the cord was immediately encountered and was noted to lie between the head and the lower uterine segment and across the lower portion of the head. The head was lifted out of the pelvis. The was delivered. The cord was unwrapped from around the and then doubly clamped and divided. The infant was handed to the nursery team that was standing by with treatment specialist. A segment of cord was clamped and set aside for cord gases. Cord blood samples were obtained and following this the placenta was manually delivered. The uterus was exteriorized, wrapped in a moist lap and cleansed in the internal portion with a dry lap. There was evidence of some extra membranes that were removed with ring forceps. At this point, the lower uterine incision was grasped with ring forceps and then closed with a running locking suture of 0 Vicryl. the incision was imbricated with 0 Vicryl. There was evidence of good contractions of the uterus and bleeding was noted to be minimal. A rolled lap was placed over the lower uterine segment. The uterus was tipped forward and the cul-de-sac was suctioned clear of clot, and estimated blood loss was made at that time. The pelvis was then irrigated with normal saline. The uterus was delivered back in the abdominal cavity. Gutters were likewise irrigated. At this point, the moist lap was removed. There was no evidence of any bleeding from the incision. The peritoneum was then closed utilizing 2-0 Vicryl. The rectus was inspected. Electrocautery was used for hemostasis on the rectus. No further bleeding was noted, so the fascia was closed utilizing looped PDS. Subcutaneous tissue was inspected. There was some bleeding on the left side of the incision, which was treated with cautery. This was then noted to be free of any bleeding, and Jhon's fascia was closed utilizing 2-0 Vicryl. The incision was then closed with 4-0 Monocryl subcuticular. A wound VAC was placed after application of benzoin. This was unable to obtain any kind of a seal, so at this point the wound VAC was removed and a regular dressing was applied. The procedure was terminated. The patient tolerated the procedure well. Because there was no sponge and instrument count performed on the way in, an x-ray was performed afterwards and showed the abdomen to be free of any sponges or instruments. The patient was taken to recovery in stable condition. Dr. Verenice Shah was critical to the performing of this procedure. She assisted in retraction and hemostasis, as well as dissection. TD: 06/08/2019 18:00 BISHNU
--- NOTE | 2019-06-11 12:51 | DISCHARGE SUMMARY ---
Physician: Beto Cook MD DATE OF ADMISSION: 06/08/2019 DATE OF DISCHARGE: 06/10/2019 ADMITTING DIAGNOSES 1. A 29-year-old G1, P0 at 39.6 weeks. 2. Spontaneous rupture of membranes. 3. Active labor. 4. Thick meconium. DISCHARGE DIAGNOSES 1. A 29-year-old G1, P0 at 39.6 weeks. 2. Spontaneous rupture of membranes. 3. Active labor. 4. Thick meconium. 5. intolerance of labor. 6. Occult prolapsed cord. PROCEDURES 1. Pitocin augmentation. 2. Intrauterine pressure catheter. 3. scalp electrode. 4. Emergency primary low transverse section. PRESENTING HISTORY: Patient is a 29-year-old G1, P0 female who presented with contractions which sta rted roughly at 2:30 in the morning. She presented at 4:30, at which time she was fingertip, 100% ef faced. She was allowed to ambulate; and over time, she spontaneously ruptured her membranes at 6:10. Thick meconium was noted at that particular time. For this reason, she was admitted to labor and [facility]. Her OB care had started at [facility], but transferred at 17 weeks. Her course was unr emarkable. She was A positive, rubella immune. Her 50 gram Glucola was 95. She was noted to have n ormal blood pressures throughout. Group B strep cultures were noted to be negative. LABORATORIES: CBC on admission showed a white count of 12.1, hematocrit was 13.3, hematocrit 39.7, p latelets were 201. Next day postop, her hemoglobin fell to 9.4, hematocrit was 28.4, platelets were 169. Her chemistries were noted to be normal. HOSPITAL COURSE: The patient was admitted; and because of arrest of dilatation, she was augmented wi th Pitocin. Because of her thickened abdominal wall, she was unable to fruit or nut picker contractions on a rou rajni basis. For this reason, an IUPC was placed. Once again difficulty monitoring the cardiac activity so a scalp electrode was placed. She developed decelerations; however, these respond ed to position change. Eventually, she developed a bradycardia down to the 90s, which persisted, and did not recover. For this reason, a stat section was called. She was taken back to the op erating room, at which time the procedure was performed. The infant was noted to have an occult prol apsed cord with the cord down near the head; in fact interspacing between the head and the lower uter ine segment. This was not noted at any time during labor with her pelvic examination. At time of pr jose, a live was encountered and the procedure was done without incident. Because a sponge count was not done prior to surgery, an x-ray was performed and the abdomen was not shown to retain any instruments or sponges. Her recovery was unremarkable. She had minimal pain. She was discharge d to home on Percocet, Motrin and Colace. TD: 06/11/2019 11:06
== END 2019-06-10 13:00 | disposition home or self-care (01) | DRG 788 ==
LOC: WFO 05:06 → FBP 05:12 → WFO 06:36 → FBP 10:08
PROVIDERS: ADMIT Obstetrics & Gynecology; ATTEND Obstetrics & Gynecology
PROC: 10D00Z1 Extraction of Products of Conception, Low, Open Approach (ICD-10-PCS; principal; 2019-06-08 15:45)
DX: O77.0 Labor and delivery complicated by meconium in amniotic fluid (principal); Z37.0 Single live birth; O69.0XX0 Labor and delivery complicated by prolapse of cord, not applicable or unspecified; O69.89X0 Labor and delivery complicated by other cord complications, not applicable or unspecified; O62.1 Secondary uterine inertia; O76 Abnormality in fetal heart rate and rhythm complicating labor and delivery; O16.4 Unspecified maternal hypertension, complicating childbirth; Z3A.39 39 weeks gestation of pregnancy
CPT/HCPCS: 36415; 72170; 80053; 82570; 84156; 84550; 85025; 99213; A9270; J1170; J3010; J7120; 59025